=== PATIENT | male | born 1970 | race Caucasian/White ===

== ENCOUNTER 2020-08-01 11:25 | Inpatient (IN) | payer OTHER ==
[~2020-08-01] VITALS: Ht 185.4 cm; Wt 121.6 kg
[~2020-08-01 11:25] MED LIST: ALDACTONE25 MG PO; ASPIRIN CHEWABL81 MG PO; ATORVASTATIN CA20 MG PO; BASAGLAR K100 UNIT/1 SC; BASAGLAR SC; BENTYL 20MG TAB20 MG PO; COZAAR25 MG PO; CRESTOR 10 MG T10 MG PO; DECADRON6 MG PO; DILTIAZEM 24HR120 M1 PO; ELIQUIS 5 MG TAB5 MG PO; FLAGYL500 MG PO; HUMALOG 10100 UNITS/ SC; HUMALOG100 UNIT/1 SQ; HUMALOG100 UNIT/3 SC; HYDROCODON-ACE1 EAC2 PO; IMDUR ER TAB 3030 MG PO; ISOSORBIDE DINIT5 MG PO; JARDIANCE25 MG PO; K-DUR TAB 20 M20 MEQ PO; LASIX20 MG PO; LASIX40 MG PO; LIPITOR TAB 2020 MG PO; LITHIUM CARBON300 M1 PO; LITHIUM CARBON600 MG PO; METOPROLOL TART25 MG PO; NEURONTIN 300300 MG PO; NIFEDIPINE XL30 MG PO; NITROGLYCERIN0.4 MG SL; NITROSTAT 0.425 TAB SL; NITROSTAT0.3 MG SL; NITROSTAT0.4 MG SL; NORCO 5-325 TA1 EACH PO; NORVASC 5 MG TAB5 MG PO; NORVASC5 MG PO; PANTOPRAZOLE SO20 MG PO; PHENERGAN 25 MG25 M1 PO; PLAVIX 75 MG TA75 MG PO; PLAVIX75 MG PO; PRAVASTATIN SOD20 MG PO; PROCARDIA XL30 MG PO; PROTONIX40 MG PO; RANEXA500 MG PO; RANITIDINE HCL150 M1 PO; SERTRALINE HCL100 MG PO; TESSALON PERLE100 MG PO; TRESIBA FLEX PEN SQ; TYLENOL 325MG325 MG PO; VENTOLIN HFA 66.7 GM INH; ZITHROMAX500 MG PO; ZOFRAN4 MG PO
[2020-08-01 12:36] LABS: HEMOGLOBIN 15.4 gm/dl (14.0-17.5); RED BLOOD COUNT 5.58 M/UL (4.20-5.50); WHITE BLOOD COUNT 6.3 K/UL (4.5-11.0)
[2020-08-01 13:12] LABS: BUN/CREATININE RATIO 18 (0-10)
[2020-08-01] MEDS ORDERED: HUMALOG100 UNIT/3 SC (14:30)
[2020-08-01] MEDS ORDERED: BASAGLAR K100 UNIT/1 SC (14:31)
[2020-08-01] MEDS ORDERED: ELIQUIS5 MG PO (14:32)
[2020-08-01] MEDS ORDERED: JARDIANCE25 MG PO (14:33)
[2020-08-01] MEDS ORDERED: RANEXA500 MG PO (14:33)
[2020-08-01] MEDS ORDERED: MULTAQ 400 MG400 MG PO (14:35)
[2020-08-01] MEDS ORDERED: MULTAQ400 MG PO (14:40)
[2020-08-02 02:14] LABS: HEMOGLOBIN 14.3 gm/dl (14.0-17.5); RED BLOOD COUNT 5.35 M/UL (4.20-5.50); WHITE BLOOD COUNT 6.5 K/UL (4.5-11.0)
[2020-08-02 02:56] LABS: BUN/CREATININE RATIO 20 (0-10)
--- NOTE | 2020-08-03 11:18 | NUR ---
[address] Montilla would talk to him about his pain meds when he made rounds. Patient stated he was not taking anything else until he got else for his pain. Stated this is rediculous. Also stated we had been ignoring him & he needed ice. Ice delivered to him. When asked if he needed anything else, he said no.
[2020-08-04 05:12] LABS: RED BLOOD COUNT 4.85 M/UL (4.20-5.50)
[2020-08-04 05:14] LABS: WHITE BLOOD COUNT 4.4 K/UL (4.5-11.0)
[2020-08-04 05:34] LABS: BUN/CREATININE RATIO 14 (0-10)
[2020-08-05 02:36] LABS: HEMOGLOBIN 13.2 gm/dl (14.0-17.5); RED BLOOD COUNT 4.84 M/UL (4.20-5.50); WHITE BLOOD COUNT 5.3 K/UL (4.5-11.0)
[2020-08-05 03:08] LABS: BUN/CREATININE RATIO 15 (0-10)
[2020-08-06 03:29] LABS: HEMOGLOBIN 13.1 gm/dl (14.0-17.5); RED BLOOD COUNT 4.85 M/UL (4.20-5.50); WHITE BLOOD COUNT 5.5 K/UL (4.5-11.0)
[2020-08-06 03:50] LABS: BUN/CREATININE RATIO 15 (0-10)
--- NOTE | 2020-08-06 15:34 | NUR ---
patient called out to let us know he had fell into the door. I went to patients room assessed his injuries. patient had ared place on his head and on his right knee. patient said that he was going to the bathroom when his sock got stuck in his iv pole wheel, he said he tried to catch himself with the pole but it has wheels on it and it didnt help much. dr. gonzalez was notified and no new orders were recieved. he did however say he would come to see the patient at 5 pm.
--- NOTE | 2020-08-06 23:14 | NUR ---
2300-WENT TO GIVE PATIENT HIS PERCOCET AND CHECK OUT HIS IV. HE SAID HIS HAND WAS SWOLLEN. I DIDN'T NOTE ANY SWELLING BUT HIS IV WAS SORE UPON FLUSHING. I TOLD HIM WE WOULD GET HIM ANOTHER ONE. I ATTEMPTED TO STICK PATIENT AND HE SAID IT HURT TOO BAD TO LET SOMEONE ELSE TRY IT. THEN HE STARTED CUSSING ABOUT HIS TELE MONITOR BEING OFF WHICH I WASN'T AWARE OF. I NOTIFIED VIDEO INTERN TO COME TALK TO PATIENT AND ASKED [place] [facility] TO START ANOTHER IV ON PATIENT FOR ME. I NOTIFIED TELE WHO SAID THAT THEY HAD BEEN TOLD THAT PATIENT WAS NON COMPLIANT AND THAT HE HAD KEPT PULLING IT OFF MULTIPLE TIMES DURING DAYSHIFT AND HAD THREW IT AT THE TECH ON DAYSHIFT. [place]OUR WENT TO START IV FOR ME AND SHE SAID PATIENT STARTED CUSSING HER SOON SHE ENTERED THE ROOM WELL. VIDEO INTERN WENT TO SPEAK TO PATIENT. SEE HOUSE SUPERVISORS NOTE.
[2020-08-07] MEDS ORDERED: AUGMENTIN 875-1 EACH PO (08:48)
== END 2020-08-07 11:12 | disposition home or self-care (01) | DRG 177 ==
LOC: ER1 11:25 → MED SURG 4 13:32 → CDU 13:32 → MED SURG 4 19:31
PROVIDERS: Emergency Medicine; ADMIT Internal Medicine
PROC: XW13325 Transfusion of Convalescent Plasma (Nonautologous) into Peripheral Vein, Percutaneous Approach, New Technology Group 5 (ICD-10-PCS; principal; 2020-08-02)
PROC: 8E0ZXY6 Isolation (ICD-10-PCS; 2020-08-02)
PROC: XW033E5 Introduction of Remdesivir Anti-infective into Peripheral Vein, Percutaneous Approach, New Technology Group 5 (ICD-10-PCS; 2020-08-02)
DX: U07.1 COVID-19 (principal); J96.00 Acute respiratory failure, unspecified whether with hypoxia or hypercapnia; J12.89 Other viral pneumonia; Z95.5 Presence of coronary angioplasty implant and graft; Z79.01 Long term (current) use of anticoagulants; Z79.82 Long term (current) use of aspirin; G47.33 Obstructive sleep apnea (adult) (pediatric); I25.10 Atherosclerotic heart disease of native coronary artery without angina pectoris; I48.0 Paroxysmal atrial fibrillation; K74.60 Unspecified cirrhosis of liver; I11.0 Hypertensive heart disease with heart failure; I50.9 Heart failure, unspecified; Z86.718 Personal history of other venous thrombosis and embolism; I87.8 Other specified disorders of veins; E78.5 Hyperlipidemia, unspecified; E66.9 Obesity, unspecified; D69.59 Other secondary thrombocytopenia; Z90.49 Acquired absence of other specified parts of digestive tract; Z88.8 Allergy status to other drugs, medicaments and biological substances; Z87.891 Personal history of nicotine dependence; E87.6 Hypokalemia; E11.65 Type 2 diabetes mellitus with hyperglycemia; Z68.22 Body mass index [BMI] 22.0-22.9, adult; R19.7 Diarrhea, unspecified; F39 Unspecified mood [affective] disorder; S09.90XA Unspecified injury of head, initial encounter; W01.0XXA Fall on same level from slipping, tripping and stumbling without subsequent striking against object, initial encounter; Y92.230 Patient room in hospital as the place of occurrence of the external cause
CPT/HCPCS: 36415; 36600; 71045; 71046; 80053; 80061; 82550; 82553; 82803; 82962; 83690; 83735; 83874; 83880; 84132; 84484; 85025; 85027; 85379; 85610; 85652; 86140; 86900; 86901; 86927; 93005; 93971; 96365; 96366; 96375; 96376; 99285; J0456; J0692; J1100; J2270; J2405; J2550; J3475; J3480; J7030; J7050

== ENCOUNTER 2020-08-31 21:35 | Emergency (ER) | payer OTHER ==
[~2020-08-31 21:35] MED LIST changes: +AUGMENTIN 875-1 EACH PO; +ELIQUIS5 MG PO; +MULTAQ 400 MG400 MG PO; +MULTAQ400 MG PO
[2020-08-31 22:37] LABS: HEMOGLOBIN 15.2 gm/dl (14.0-17.5); RED BLOOD COUNT 5.43 M/UL (4.20-5.50); WHITE BLOOD COUNT 13.1 K/UL (4.5-11.0)
== END 2020-09-01 02:25 | disposition left against medical advice (07) ==
LOC: ER1 21:35
PROVIDERS: Emergency Medicine
DX: R07.89 Other chest pain (principal); R10.9 Unspecified abdominal pain; R68.84 Jaw pain; Z53.21 Procedure and treatment not carried out due to patient leaving prior to being seen by health care provider
CPT/HCPCS: 36415; 71046; 85025; 93005

== ENCOUNTER 2020-11-22 05:27 | Emergency (ER) | payer OTHER ==
[2020-11-22 06:14] LABS: HEMOGLOBIN 13.8 gm/dl (14.0-17.5); RED BLOOD COUNT 4.85 M/UL (4.20-5.50); WHITE BLOOD COUNT 8.7 K/UL (4.5-11.0)
[2020-11-22 06:35] LABS: BUN/CREATININE RATIO 14 (0-10)
== END 2020-11-22 08:21 | disposition left against medical advice (07) ==
LOC: ER1 05:27
PROVIDERS: Student in an Organized Health Care Education/Training Program
DX: R07.89 Other chest pain (principal); I11.9 Hypertensive heart disease without heart failure; E11.9 Type 2 diabetes mellitus without complications; I25.10 Atherosclerotic heart disease of native coronary artery without angina pectoris; Z79.01 Long term (current) use of anticoagulants; Z79.899 Other long term (current) drug therapy
CPT/HCPCS: 71046; 80053; 80178; 82550; 82553; 83605; 83690; 83874; 83880; 84484; 85025; 85379; 93005; 96374; 99285; J2405

== ENCOUNTER 2021-02-09 05:09 | Observation (INO) | payer OTHER ==
[~2021-02-09] VITALS: Ht 182.9 cm; Wt 127.0 kg
[2021-02-09 05:54] LABS: HEMOGLOBIN 12.8 gm/dl (14.0-17.5); RED BLOOD COUNT 4.63 M/UL (4.20-5.50); WHITE BLOOD COUNT 10.5 K/UL (4.5-11.0)
[2021-02-09 05:58] LABS: BUN/CREATININE RATIO 17 (0-10)
[2021-02-09] MEDS ORDERED: NITROSTAT0.4 MG SL (09:39)
[2021-02-09] MEDS ORDERED: LASIX 40 MG TAB40 MG PO (09:57)
[2021-02-09] MEDS ORDERED: INSULIN PUMP (09:59)
[2021-02-09] MEDS ORDERED: ASPIRIN EC325 MG PO (09:59)
[2021-02-09] MEDS ORDERED: K-DUR TAB 10 M10 MEQ PO (10:00)
--- NOTE | 2021-02-09 12:15 | NUR ---
Patient requested to have IV taken out and leave. Patient stated "they can not do anything for me here." Notified Dr. Betancourt and cardiology PA reguarding patients request. IV taken out at this time. AMA papers signed by patient and placed in chart. 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
== END 2021-02-09 11:58 | disposition left against medical advice (07) ==
LOC: ER1 05:09 → CDU 06:13 → M/S 06:13
PROVIDERS: Emergency Medicine; ADMIT Internal Medicine
DX: I25.119 Atherosclerotic heart disease of native coronary artery with unspecified angina pectoris (principal); E11.9 Type 2 diabetes mellitus without complications; I10 Essential (primary) hypertension; F31.9 Bipolar disorder, unspecified; F41.9 Anxiety disorder, unspecified; E87.6 Hypokalemia; E66.9 Obesity, unspecified; G47.33 Obstructive sleep apnea (adult) (pediatric); Z79.899 Other long term (current) drug therapy; Z79.82 Long term (current) use of aspirin; Z86.718 Personal history of other venous thrombosis and embolism; Z95.818 Presence of other cardiac implants and grafts; Z96.41 Presence of insulin pump (external) (internal); Z87.891 Personal history of nicotine dependence; Z82.49 Family history of ischemic heart disease and other diseases of the circulatory system; Z68.37 Body mass index [BMI] 37.0-37.9, adult
CPT/HCPCS: 36415; 71045; 80053; 80061; 80178; 82550; 82553; 83036; 83690; 83735; 83874; 83880; 84132; 84439; 84443; 84484; 85025; 85610; 85730; 86140; 93005; 96374; 99285; G0378; J2270

== ENCOUNTER → 2021-02-12 | Outpatient (CLI) | payer OTHER ==
[~2021-02-12] MED LIST changes: +ASPIRIN EC325 MG PO; +INSULIN PUMP; +K-DUR TAB 10 M10 MEQ PO; +LASIX 40 MG TAB40 MG PO
== END ==
LOC: US 09:38
DX: K75.81 Nonalcoholic steatohepatitis (NASH) (principal)
CPT/HCPCS: 36415; 76705; 80076; 85610

== ENCOUNTER 2021-08-27 16:40 | Observation (INO) | payer OTHER ==
[~2021-08-27] VITALS: Ht 182.9 cm; Wt 127.0 kg
[2021-08-27 18:41] LABS: HEMOGLOBIN 15.3 gm/dl (14.0-17.5); RED BLOOD COUNT 5.44 M/UL (4.20-5.50); WHITE BLOOD COUNT 15.6 K/UL (4.5-11.0)
[2021-08-27 19:51] LABS: BUN/CREATININE RATIO 19 (0-10)
[2021-08-27] MEDS ORDERED: ELIQUIS5 MG PO (23:37)
[2021-08-27] MEDS ORDERED: WELLBUTRIN SR200 MG PO (23:37)
[2021-08-28 04:47] LABS: HEMOGLOBIN 13.7 gm/dl (14.0-17.5); RED BLOOD COUNT 4.95 M/UL (4.20-5.50); WHITE BLOOD COUNT 13.9 K/UL (4.5-11.0)
[2021-08-28 05:07] LABS: BUN/CREATININE RATIO 17 (0-10)
[2021-08-28] MEDS ORDERED: CARVEDILOL3.125 MG PO (16:11)
== END 2021-08-29 12:08 | disposition home or self-care (01) ==
LOC: ER1 16:40 → MED SURG 4 20:34 → CDU 20:34 → MED SURG 4 22:50
PROVIDERS: Emergency Medicine; Internal Medicine; ADMIT Internal Medicine
DX: U07.1 COVID-19 (principal); I25.10 Atherosclerotic heart disease of native coronary artery without angina pectoris; E11.9 Type 2 diabetes mellitus without complications; I48.0 Paroxysmal atrial fibrillation; K74.60 Unspecified cirrhosis of liver; F31.9 Bipolar disorder, unspecified; F41.9 Anxiety disorder, unspecified; F32.A Depression, unspecified; D69.6 Thrombocytopenia, unspecified; I25.2 Old myocardial infarction; Z79.01 Long term (current) use of anticoagulants; Z79.4 Long term (current) use of insulin; Z79.82 Long term (current) use of aspirin; Z79.899 Other long term (current) drug therapy; Z87.891 Personal history of nicotine dependence; Z88.8 Allergy status to other drugs, medicaments and biological substances; Z95.5 Presence of coronary angioplasty implant and graft
CPT/HCPCS: ECHO; 0240U; 36415; 71045; 80048; 80061; 80076; 82550; 82553; 83036; 83690; 83735; 83880; 84100; 84132; 84439; 84443; 84484; 85025; 85379; 85610; 85730; 86140; 93005; 93306; 96374; 96375; 99285; G0378; J2270; J2405; J2550

== ENCOUNTER 2021-11-01 18:31 | Observation (INO) | payer OTHER ==
[~2021-11-01] VITALS: Ht 182.9 cm; Wt 139.3 kg
[~2021-11-01 18:31] MED LIST changes: +CARVEDILOL3.125 MG PO; -K-DUR TAB 10 M10 MEQ PO
[2021-11-01 19:02] LABS: HEMOGLOBIN 12.6 gm/dl (14.0-17.5); RED BLOOD COUNT 4.5 M/UL (4.20-5.50); WHITE BLOOD COUNT 8.6 K/UL (4.5-11.0)
[2021-11-01 19:30] LABS: BUN/CREATININE RATIO 14 (0-10)
--- NOTE | 2021-11-01 22:12 | NUR ---
PATIENT DOES NOT HAVE MEDICATION BOTTLES WITH HIM CURRENTLY WILL HAVE PHARMAC ADDRESS MEDS IN AM OR FAMILY BRING PATIENT MEDICATION FROM HOME.
[2021-11-02 03:07] LABS: BUN/CREATININE RATIO 13 (0-10)
[2021-11-02] MEDS ORDERED: BUPROPION HCL100 M1 PO (08:32)
[2021-11-02] MEDS ORDERED: KLOR-CON 1010 MEQ PO (10:00)
[2021-11-02 10:24] LABS: BUN/CREATININE RATIO 14 (0-10)
[2021-11-02] MEDS ORDERED: AMLODIPINE BESYL5 MG PO (17:32)
[2021-11-02] MEDS ORDERED: ATORVASTATIN CA40 MG PO (17:32)
[2021-11-02] MEDS ORDERED: ASPIRIN EC81 MG PO (17:32)
[2021-11-02] MEDS ORDERED: WELLBUTRIN SR200 MG PO (23:37)
== END 2021-11-02 18:15 | disposition home or self-care (01) ==
LOC: ER1 18:31 → CDU 20:11 → M/S 20:11
PROVIDERS: Internal Medicine; Physician Assistant Medical; ADMIT Internal Medicine
DX: I25.119 Atherosclerotic heart disease of native coronary artery with unspecified angina pectoris (principal); I11.0 Hypertensive heart disease with heart failure; I50.30 Unspecified diastolic (congestive) heart failure; I48.0 Paroxysmal atrial fibrillation; D69.6 Thrombocytopenia, unspecified; E87.6 Hypokalemia; E11.9 Type 2 diabetes mellitus without complications; G47.33 Obstructive sleep apnea (adult) (pediatric); E78.5 Hyperlipidemia, unspecified; E66.9 Obesity, unspecified; Z86.16 Personal history of COVID-19; Z95.5 Presence of coronary angioplasty implant and graft; Z99.89 Dependence on other enabling machines and devices; Z68.41 Body mass index [BMI] 40.0-44.9, adult; Z20.822 Contact with and (suspected) exposure to COVID-19; Z79.82 Long term (current) use of aspirin; Z79.01 Long term (current) use of anticoagulants; Z79.4 Long term (current) use of insulin; Z79.899 Other long term (current) drug therapy; Z88.8 Allergy status to other drugs, medicaments and biological substances; Z87.891 Personal history of nicotine dependence; Z82.49 Family history of ischemic heart disease and other diseases of the circulatory system
CPT/HCPCS: 71045; 78452; 80048; 80053; 82550; 82553; 83690; 83880; 84484; 85025; 85610; 85730; 93005; 93017; 96365; 96366; 96375; 96376; 99285; G0378; J2270; J2405; J2550; J2785; U0002

== ENCOUNTER 2022-04-12 13:03 | Emergency (ER) | payer OTHER ==
[~2022-04-12] VITALS: Ht 182.9 cm; Wt 131.5 kg
[~2022-04-12 13:03] MED LIST changes: +AMLODIPINE BESYL5 MG PO; +ASPIRIN EC81 MG PO; +ATORVASTATIN CA40 MG PO; +BUPROPION HCL100 M1 PO; +KLOR-CON 1010 MEQ PO; +WELLBUTRIN SR200 MG PO
[2022-04-12 13:29] LABS: HEMOGLOBIN 12.8 gm/dl (14.0-17.5); RED BLOOD COUNT 4.73 M/UL (4.20-5.50); WHITE BLOOD COUNT 8.5 K/UL (4.5-11.0)
[2022-04-12 13:52] LABS: BUN/CREATININE RATIO 10 (0-10)
[2022-04-12] MEDS ORDERED: HUMALOG100 UNIT/1 SC (16:27)
[2022-04-12] MEDS ORDERED: CLOPIDOGREL75 MG PO (16:28)
[2022-04-12] MEDS ORDERED: SERTRALINE HCL100 MG PO (16:28)
[2022-04-12] MEDS ORDERED: POTASSIUM CHLO20 ME2 PO (16:28)
[2022-04-12] MEDS ORDERED: EXCEDRIN MIGRA1 EACH PO (16:29)
== END 2022-04-12 17:30 | disposition home or self-care (01) ==
LOC: ER1 13:03 → CDU 15:11 → ER1 15:11 → CDU 18:37
PROVIDERS: Emergency Medicine
DX: I25.10 Atherosclerotic heart disease of native coronary artery without angina pectoris (principal); I10 Essential (primary) hypertension; E78.5 Hyperlipidemia, unspecified; I48.0 Paroxysmal atrial fibrillation; E11.9 Type 2 diabetes mellitus without complications; Z86.718 Personal history of other venous thrombosis and embolism; I25.2 Old myocardial infarction; G47.33 Obstructive sleep apnea (adult) (pediatric); K74.60 Unspecified cirrhosis of liver; Z95.5 Presence of coronary angioplasty implant and graft; Z79.01 Long term (current) use of anticoagulants; Z96.41 Presence of insulin pump (external) (internal); Z90.49 Acquired absence of other specified parts of digestive tract; Z88.8 Allergy status to other drugs, medicaments and biological substances; Z79.82 Long term (current) use of aspirin; Z79.899 Other long term (current) drug therapy; Z87.891 Personal history of nicotine dependence
CPT/HCPCS: 71045; 80053; 82550; 82553; 84484; 85025; 93005; 99285